=== PATIENT | female | born 1995 | race Caucasian/White ===

== ENCOUNTER 2023-03-17 02:00 | Inpatient (IN) | payer OTHER ==
[2023-03-17] MEDS ORDERED: ELECTROLYTE-148 SOLN 1,000 ML IV SCH (03:00)
[2023-03-17 03:14] VITALS: BMI 32.5
[2023-03-17 03:25] LABS: BASO % 0.3 % (0-2.0); EOS % 0.2 % (0-4.5); HEMATOCRIT 33.1 % (32.4-45.2); HEMOGLOBIN 11.2 GM/dL (10.7-15.3); LYMPH % 11.1 % (8-40); MCH 27.4 pg (25.7-33.7); MCHC 33.7 g/dl (32.0-36.0); MEAN CELL VOLUME 81.3 fl (80-96); MEAN PLT VOLUME 7.9 fl (7.5-11.1); MONO % 5.6 % (3.8-10.2); NEUT % 82.8 % (42.8-82.8); PLATELET COUNT 283 10^3/uL (134-434); RBC 4.07 M/mm3 (3.60-5.2); RDW 15.3 % (11.6-15.6); WHITE BLOOD COUNT 13.9 K/mm3 (4.0-10.0)
[2023-03-17 03:31] LABS: INR 0.95 (0.83-1.09)
[2023-03-17 03:32] LABS: POTASSIUM 3.9 mmol/L (3.5-5.1)
[2023-03-17 03:33] LABS: CALCIUM 8.4 mg/dL (8.5-10.1)
[2023-03-17 03:34] LABS: ACTIVATED PTT 24.7 SECONDS (25.2-36.5); BLOOD UREA NITROGEN 7.1 mg/dL (7-18)
[2023-03-17] MEDS ORDERED: FENTANYL/BUPIVACAINE/NS/PF - PCEA - 50 ML DISP.SYRIN EP ONE ×3 (03:36→11:31)
[2023-03-17 03:37] LABS: CREATININE 0.6 mg/dL (0.55-1.3)
[2023-03-17] MEDS ORDERED: FENTANYL CITRATE/PF 50 MCG/ML VIAL ONE (03:46)
[2023-03-17] MEDS ORDERED: NALOXONE HCL 0.4 MG/ML VIAL IVPUSH PRN (04:17)
[2023-03-17] MEDS ORDERED: FENTANYL/BUPIVACAINE/NS/PF - PCEA - 50 ML DISP.SYRIN EP SCH (04:30)
[2023-03-17] MEDS ORDERED: OXYTOCIN 30 UNITS in 0.9% NS 30 UNIT/500 ML INFUS.BAG IVPB ONE (08:15)
[2023-03-17] MEDS ORDERED: OXYTOCIN 30 UNITS in 0.9% NS 30 UNIT/500 ML INFUS.BAG IVPB SCH (08:30)
[2023-03-17] MEDS ORDERED: BUPIVACAINE HCL/PF 0.25% (2.5MG/ML) 10 ML VIAL ONE (09:41)
[2023-03-17] MEDS ORDERED: OXYTOCIN 20 UNITS in 0.9% NS 20 UNIT/1,000 ML INFUS.BAG IV ONE (10:50)
[2023-03-17] MEDS ORDERED: BENZOCAINE 28 GM HEMORRHOIDAL OINTMENT TP PRN (12:24)
[2023-03-17] MEDS ORDERED: BISACODYL 10 MG SUPP.RECT RC PRN (12:24)
[2023-03-17] MEDS ORDERED: BENZOCAINE 20% 57 GM BOTTLE TP PRN (12:24)
[2023-03-17] MEDS ORDERED: METHYLERGONOVINE MALEATE 0.2 MG/1 ML AMP IM PRN (12:24)
[2023-03-17] MEDS ORDERED: ACETAMINOPHEN 325 MG TABLET (FP) PO PRN (12:24)
[2023-03-17] MEDS ORDERED: WITCH HAZEL 50% (TUCKS) 40 PAD/JAR PAD TP PRN (12:24)
[2023-03-17] MEDS ORDERED: OXYTOCIN 20 UNITS in 0.9% NS 20 UNIT/1,000 ML INFUS.BAG IV SCH (12:30)
[2023-03-17 14:24] LABS: POC NITRAZINE POS
[2023-03-17] MEDS: IBUPROFEN 600 MG TABLET (FP) PO PRN (17:33)
[2023-03-17] MEDS: FERROUS SO4 325 MG TABLET (FP) PO SCH (21:22)
[2023-03-18] MEDS: IBUPROFEN 600 MG TABLET (FP) PO PRN (07:58)
[2023-03-18 08:16] LABS: BASO % 0.3 % (0-2.0); EOS % 0.6 % (0-4.5); HEMATOCRIT 26.3 % (32.4-45.2); HEMOGLOBIN 8.7 GM/dL (10.7-15.3); MCH 27.4 pg (25.7-33.7); MEAN CELL VOLUME 82.8 fl (80-96); MEAN PLT VOLUME 7.6 fl (7.5-11.1); MONO % 5.5 % (3.8-10.2); NEUT % 72.6 % (42.8-82.8); PLATELET COUNT 196 10^3/uL (134-434); RBC 3.18 M/mm3 (3.60-5.2); RDW 15.7 % (11.6-15.6); WHITE BLOOD COUNT 10.8 K/mm3 (4.0-10.0)
[2023-03-18] MEDS: PRENATAL VITAMINS W/ FOLIC ACID TABLET (FP) PO SCH (10:31)
[2023-03-18] MEDS: FERROUS SO4 325 MG TABLET (FP) PO SCH ×2 (10:31→21:38)
[2023-03-18] MEDS ORDERED: SENNOSIDES/DOCUSATE COMBO (SENNA PLUS) TABLET (UD) PO PRN (22:00)
[2023-03-19] MEDS: FERROUS SO4 325 MG TABLET (FP) PO SCH (09:55)
[2023-03-19] MEDS: PRENATAL VITAMINS W/ FOLIC ACID TABLET (FP) PO SCH (09:56)
[2023-03-19] MEDS: IBUPROFEN 600 MG TABLET (FP) PO PRN (09:56)
[2023-03-19 12:39] VITALS: BP 105/72; PULSE 102; RESP 16; TEMP 99.1
== END 2023-03-19 13:25 | disposition home or self-care (01) | DRG 560 ==
LOC: JDEL 02:00 → JLDR 02:45 → J3W 13:50
PROVIDERS: ADMIT Obstetrics & Gynecology; ATTEND Obstetrics & Gynecology
PROC: 10E0XZZ Delivery of Products of Conception, External Approach (ICD-10-PCS; principal; 2023-03-17)
PROC: 0W8NXZZ Division of Female Perineum, External Approach (ICD-10-PCS; 2023-03-17)
DX: O48.0 Post-term pregnancy (principal); O42.02 Full-term premature rupture of membranes, onset of labor within 24 hours of rupture; Z3A.40 40 weeks gestation of pregnancy; Z37.0 Single live birth
CPT/HCPCS: 36415; 59025; 80048; 83986-QW; 85025; 85610; 85730; 86780; 86850; 86900; 86901